=== PATIENT | female | born 1975 | race Caucasian/White ===

== ENCOUNTER 2020-03-11 07:34 | Day surgery (SDC) | payer OTHER, SELFPAY ==
--- NOTE | 2020-02-13 16:33 | PCM.HPOB.BLA ---
- Problem List (1) History of breast cancer Status: Acute (2) Ovary removal, prophylactic Status: Acute History and Physical Date of Admission: 03/11/20 DATE OF SERVICE: February 13, 2020 ? PROBLEM:?H/o breast cancer ? DIAGNOSIS:?H/o breast cancer ? PAST SURGICAL HISTORY:? PAST SURGICAL HISTORY PAST SURGICAL HISTORY Procedure Laterality Date ? INSERTION PLEURAL CATHETER ? 07/28/2019 ? PAST SURGICAL HISTORY OF ? 11/2010 ? Rt axillary node dissection Rt mastectomy ? PAST SURGICAL HISTORY OF ? 11/2010 ? right axillary node dissection ? PAST MEDICAL HISTORY:? PAST MEDICAL HISTORY PAST MEDICAL HISTORY Diagnosis Date ? Breast cancer (HCC) 11/2010 ? Right breast, completed radiation 03/09/11 ? SUBJECTIVE:? ? Pt reports her mother had trouble with anesthesia, but she cannot remember what the issue was. She says her mother reported she did not do well with the medication. She does not report a life threatening situation.? ? The patient herself has?never personally had any issues with anesthesia?or prior surgeries. ? Her oncology recommended BSO. She has recurrent metastatic breast cancer. ? She had Covid a few months ago.? ? SOCIAL HISTORY:? SOCIAL HISTORY Social History ? Tobacco Use ? Smoking status: Never Smoker ? Smokeless tobacco: Never Used Substance Use Topics ? Alcohol use: No ? Drug use: No ? Allergies: ?Keflex [Cephalexin] ?Rash ??Comment:Rash or hives ? Current Outpatient Medications on File Prior to Visit Medication Sig ? BIOTIN ORAL Take by mouth. ? zoledronic lmjn-kwfgynnn-qexak (ZOMETA) 4 mg/100 mL pgbk Inject intravenously. ? abemaciclib (VERZENIO) 150 mg tablet TAKE 1 TABLET (150MG) BY ?MOUTH TWICE DAILY ? letrozole (FEMARA) 2.5 mg tablet Take 1 tablet by mouth once daily. ? MULTIVITAMIN ORAL Take 1 tablet by mouth once daily. ? ? cholecalciferol, vitamin D3, (VITAMIN D3 ORAL) Take 1 tablet by mouth once daily. ? ? CALCIUM CITRATE ORAL Take 1 tablet by mouth twice daily. ? ? Ibuprofen 200 mg ORAL Cap Take 200 mg by mouth as needed. Take 400 mg. -600 mg. As needed. ? acetaminophen (TYLENOL EXTRA STRENGTH) 500 mg ORAL tablet Take 500 mg by mouth every 6 hours as needed. No current facility-administered medications on file prior to visit. ? OBJECTIVE: ? VITALS:? BP 80/50 ? Pulse 70 ? Resp 18 ? Ht 5' 6 (1.676 m) ? Wt 121 lb 9.6 oz (55.2 kg) ? LMP 08/26/2019 ? BMI 19.63 kg/m? ? HEENT: ?Normocephalic, atraumatic, Mucus membranes moist without lesions. ? NECK: ???Soft and Supple. ?No adenopathy , thyromegaly or bruits. ? SKIN: No lesions. ? CHEST: Clear to auscultation. ?No wheezes or rales. ?Good air exchange. ? HEART: Regular rate and rhythm ?No S3 or S4. ?No gallops or rubs. ? BACK: Nontender with no CVA tenderness. ? ABDOMEN: Soft, non-tender, non-distended, no masses, no hepatosplenomegaly. ? LOWER EXTREMITIES: There was no pitting edema, no palpable cords and no skin changes. ? ? ? ASSESSMENT:?H/o breast cancer, BSO recommended by oncologist ? PLAN:?Discussed laparoscopic BSO in detail.?The rationale for the proposed surgery was discussed in addition to risks, benefits, and alternatives. ?General pre- and post-operative care was reviewed. ?Questions were answered. ?After discussion, the patient indicated a desire to proceed with the planned surgery. ? Flor Lewis,?DO
[2020-03-10 11:32] LABS: Hematocrit 36.6 % (37-47); Mean Corp Hgb Conc 32.8 g/dL (32-36); Mean Corpuscular Hgb 34.5 pg (27.0-32.0); Mean Corpuscular Volume 105.2 fL (81-99); Mean Platelet Vol. 8.3 fl (6.2-12.0); Platelet Count 260 K/mm3 (150-450); RBC Distribution Width CV 12.8 % (11.6-14.6); RBC Distribution Width SD 49.1 fl (35.1-43.9); Red Blood Count 3.48 M/mm3 (4.2-5.4); White Blood Count 2.6 K/mm3 (4.4-11.0)
--- NOTE | 2020-03-11 | IMM_PTH ---
PATIENT: FARSHAD RAMOS [place] [facility] [place][id number] AGE/SX: 44/F ROOM: RE03/11/[address]: Dr. Flor Lewis DO : 1975 BED: DIS: 03/11/2020 SPEC #: [id number] RECD: 03/15/20 12:27 STATUS: ESTEFANY REQ #: [id number] MEGHAN: 03/11/20 00:[address]: Flor Lewis DEPT: IMMUNOHISTOCHEMISTRY RECD BY: Mary Jane Werner ENTERED: 03/15/20 12:30 SP TYPE: IMMUNO OTHR DR: Dr. Nitin Saenz MD Tissues: Uterus, NOS Procedures: RCC (add) NAPSIN A (add) CK20 (add) CK5-6 (add) CK7 (add) CK8 (add) E-CAD (add) HEP PAR (add) HER2 QUYEN (add) HI (add) TTF1 (add) Pankeratin (add) P40 (add) ER (initial) PHYSICIAN & [address] [address] SPECIMEN INFORMATION: Tissue Source: Bilateral fallopian tubes and ovaries Clinical Info: Breast cancer Specimen Number: [id number] #4 CPT code: 95609, 94253 x13 METHODOLOGY: Deparaffinized sections of prefer/formalin-fixed tissue or PAP/DQ stained slides are incubated with monoclonal/polyclonal antibodies/oligonucleotide probes. Localization is made via biotin free immunoperoxidase method. Appropriate controls are performed and reacted as expected. Results on target cell population are indicated in the following table: RESULTS: ANTIBODY / CLONE RESULT Block 4 E-Cad (ECH-6) positive AE1-3 (AE1/AE3/PCK26) positive CK7 (OV-TL12/30) positive CK8 (92mfhuJ14) positive CK20 (KS20.8) negative TTF-1 (8G7G3/1) negative Napsin A (Rabbit Polyclonal) negative HepPar (OCh1E5) negative RCC (PN-15) negative * CK5-6 (D5 & 1684) negative P40 (BC28) negative ER (clone 6F11) positive (>95%, strong staining) HI (clone 16/1E2) positive (~10%, weak staining) Her-2Neu (clone CB11) negative (1+) *?Aberrant luminal membranous staining is noted. These tests were developed and their performance characteristics determined by [facility]. They may not have been cleared or approved by the U.S. Food and Drug Administration. The FDA has determined that such clearance or approval is not necessary. The above immunohistochemical/dualISH markers are ordered and reviewed by the Pathologist. INTERPRETATION: Bilateral fallopian tubes and ovaries, salpingo-oophorectomy: Metastatic carcinoma consistent with breast primary. SJ:arline 03/16/2020 Case has been reviewed in consultation with Dr. Plata who concurs with the above diagnosis. IDC:AM
--- NOTE | 2020-03-11 | FALS_PTH ---
PATIENT: FARSHAD RAMOS [place] [facility] [place][id number] AGE/SX: 44/F ROOM: RE03/11/[address]: Dr. Flor Lewis DO : 1975 BED: DIS: 03/11/2020 SPEC #: [id number] RECD: 03/11/20 10:08 STATUS: ESTEFANY REEmerson #: [id number] MEGHAN: 03/11/20 00:[address]: Flor Lewis DEPT: SURGICAL PATHOLOGY RECD BY: Benjamin Curtis ENTERED: 03/11/20 10:08 SP TYPE: FALL TUBES OTHR DR: Dr. Nitin Saenz MD Tissues: Fallopian tube Procedures: Surgery Specimen Level IV HEADER OPERATION: Laparoscopic salpingo-oophorectomy PRE-OP DIAGNOSIS: History of breast cancer, BSO TISSUE SUBMITTED: Bilateral fallopian tubes and ovaries MICROSCOPIC DIAGNOSIS Bilateral fallopian tubes and ovaries, salpingo-oophorectomy: Bilateral ovaries - metastatic carcinoma consistent with breast primary. See comment. Bilateral fallopian tubes - no pathologic diagnosis. SJ:rg 03/16/2020 COMMENT The largest focus of metastatic carcinoma measures 1.2 cm in greatest dimension. Immunohistochemistry ([id number]) supports the above diagnosis. Clinical correlation and appropriate follow up are necessary. Please make reference to previous specimen ([id number]) right breast, mastectomy with diagnosis of invasive ductal carcinoma. The results are reported to Dr. Lewis's office on 03/16/2020. Case has been reviewed in consultation with Dr. Plata who concurs with the above diagnosis. IDC:AM MICROSCOPIC DESCRIPTION Slides are reviewed. GROSS DESCRIPTION Received in fixative is one container labeled with the patient's name and designated bilateral fallopian tubes and ovaries. The specimen consists of two fragments. These fragments consist of an ovary with adjacent fallopian tube. The ovaries are not designated as to right or left. One ovary measures 3 x 2.5 x 1 cm. Serial sections through the ovary does not reveal mass lesions. The adjacent fallopian tube measures 6 cm in length and 0.5 cm in average diameter. No tubo-ovarian adhesions are identified. Systems Development Manager sections from this ovary and fallopian tube are submitted in cassette 1. The other ovary is similar in appearance to the first ovary and measures 3 x 2 x 1 cm. Serial sections of the ovary reveal a firm, rubbery olivares nodule measuring 1.2 cm in greatest dimension. The adjacent fallopian tube measures 5 cm in length and 0.4 cm in average diameter. No tubo-ovarian adhesions are identified. Both fimbrial ends are grossly unremarkable. Systems Development Manager sections from the second ovary and fallopian tube are submitted in cassette 2. / AM:arline 03/11/20 The rest of the specimen is submitted in six more cassettes as follows: 3 & 4 - ovary with grossly identified nodule, 5 & 6 - rest of the other ovary, 7 & 8 - rest of the fallopian tube. / SJ:arline 03/12/20 TC:0 CPT: 24354 x2
[2020-03-11 08:05] VITALS: BP 105/83; PULSE 91; RESP 18; TEMP 36.8; O2SAT 100
[2020-03-11 08:28] LABS: Internal QC Validated? YES +Cl - CLEAR BKGD; Pregnancy, Urine Negative Negative
--- NOTE | 2020-03-11 08:28 | PCM.DC ---
- Discharge Diagnoses Current Active Problems: Current Active and Chronic Problems History of breast cancer (Acute) Ovary removal, prophylactic (Acute) You will use the following diet at home:: Regular Your food should be the consistency of: Regular Discharge Activity: May not drive while taking narcotic pain medications., May Shower May resume sexual activity in: 1 week Ice area for (Minutes): 15 Weight Bearing Status: Weight bearing as tolerated Lifting Restrictions: Nothing greater than 5-10 lbs for 1-2 weeks Call your doctor if your incision/area has: Sudden Increased Bleeding, Increased Pain/ Swelling, Increased Redness, Foul Smelling Discharge, Swelling at the incision site Call your doctor if you observe: Fever of 101 or Higher, Change in Color, Inability to urinate, Inability to have a bowel movement, Using more than one pad per hour, Shortness of breath, Dizziness, Fainting spells, Swelling in the ankles, Chest pain, Increased palpitations (irregular heartbeat), Calf discomfort, Uncontrolled pain Suture Line Care: Avoid Pulling/Pushing, Avoid Pinching/Bending Cleanse incision/area with: Soap & Water Allergies/Adverse Reactions: Allergies cephalexin [From Keflex] Allergy (Verified 03/04/20 12:10) Rash Medications to take at Discharge Abemaciclib [Verzenio] 150 mg PO BID 03/04/20 Acetaminophen [Tylenol Extra Strength] 500 - 1,000 mg PO Q6H PRN PRN 03/04/20 Biotin 1 mg PO DAILY 03/04/20 Calcium Acetate [Phoslyra] 5 ml PO DAILY 03/04/20 Cholecalciferol (VIT D3) [Vitamin D] 1,000 unit PO DAILY 03/04/20 Letrozole [Femara] 2.5 mg PO DAILY 03/04/20 Multivitamin [Daily Multiple Vitamin] 1 ea PO DAILY 03/04/20 [place]-3 Fatty Acids/Fish Oil [[place] 3 1,000 mg Softgel] 1 ea PO DAILY 03/04/20 Primary Care Physician: Nitin Saenz MD [Primary Care Provider] - Test Results: Test results from this visit will be discussed in further detail at your follow-up appointment, if applicable. Please Follow Up With: Flor Lewis DO When: 1 week
[2020-03-11] MEDS: Lactated Ringers 1,000 ML 100 ML IV (08:29)
[2020-03-11] MEDS: Bupivacaine Mpf 0.5% 30 ML VIAL (08:53)
--- NOTE | 2020-03-11 09:28 | PCM.OPRPT ---
Problem List (1) History of breast cancer Status: Acute (2) Ovary removal, prophylactic Status: Acute Report of Operation Date of Procedure: 03/11/20 Pre-Operative Diagnosis: History of breast cancer Post-Operative Diagnosis: As above Surgery/Procedure Performed:: Laparoscopic bilateral salpingoophorectomy Description of Surgical Findings:: Normal appearing pelvis. Normal-appearing uterus. Normal-appearing bilateral tubes and ovaries. medical claims analyst: Mary Alice Abarca Type of Anesthesia:: General Anesthesiologist: Hernandez Pereira Special Medications: None Specimen's removed: Bilateral tubes and ovaries Drains: Rea Estimated Blood Loss (mL): < 50 cc Fluids Replaced: 1200 Description of Procedure: Marshmallow Machine Worker was present for the entire case and assisted with prepping and draping the patient, assisted with performing the BSO, and assisted with closure of the port sites. Start time: 852 Stop time: 927 Procedure: The patient was taken to the operating room where general anesthesia was induced. She was prepped and draped in dorsal lithotomy position using yellowfin stirrups. From below a weighted speculum was placed in the vagina to expose the cervix. A single-tooth tenaculum was placed on the anterior lip of the cervix. A Ed cannula was placed. A Rea catheter was placed. Gloves were then changed and attention was turned to the abdominal portion of the procedure. Local was infiltrated at all port sites. Infraumbilically an incision was made to accommodate a 5 mm port. The port was placed under direct visualization with the laparoscope. Once confirmed intraperitonea, CO2 insufflation was initiated. The omentum and bowel were inspected with no injury noted upon entry. A 5 mm left lateral port was placed. A 5 mm right lateral port was placed. The pelvis was inspected and noted to be normal-appearing. Pictures were taken for the patient. The right ureter was identified. The right ovary and fallopian tube were elevated out of the pelvis. The infundibulopelvic ligament was cauterized and transected with good visualization of the ureter using the Ligasure device. The utero-ovarian ligament was cauterized and transected. The right ovary and tube were removed using the Ligasure device and placed into the cul-de-sac. Next the left ureter was easily identified. The left ovary and tube were elevated out of the pelvis. The infundibulopelvic ligament was cauterized and transected with good visualization of the ureter. The utero-ovarian ligament was then cauterized and transected. The left ovary and fallopian tube were removed using the Ligasure device. A 5 mm endocatch bag was placed into the left lateral port. The bilateral tubes and ovaries were placed into the 5 mm bag. The bilateral ovaries and tubes within the bag were removed from the pelvis. The bilateral ovaries and tubes were sent to pathology for review. Hemostasis was noted. All ports were removed and the abdomen was exsufflated. The incision sites were closed with Monocryl and glue. From below all instruments were removed and a vaginal sweep was performed. The Rea catheter was removed. All instrument, sponge, needle counts were correct. The patient was taken to the recovery in stable condition. Grafts/Implants Used: None - Complications None - Admit VTE Documentation VTE Present on Admission: No VTE Mechan Device Prophylaxis: SCD's VTE Pharm Prophylaxis ordered?: No
[2020-03-11 09:39] VITALS: BP 105/83; BP 125/84; PULSE 85; RESP 16; TEMP 36.3; O2SAT 100
[2020-03-11 09:45] VITALS: BP 105/83; BP 109/74; PULSE 76; RESP 16; O2SAT 100
[2020-03-11 10:00] VITALS: BP 105/83; BP 98/62; PULSE 62; RESP 16; O2SAT 100
[2020-03-11 10:16] VITALS: BP 105/83; BP 95/64; PULSE 61; RESP 16; TEMP 36.1; O2SAT 99
[2020-03-11 11:17] VITALS: BP 105/83; BP 94/56; PULSE 58; RESP 18; TEMP 36.2; O2SAT 100
== END 2020-03-11 11:37 | disposition home or self-care (01) ==
LOC: SDC 07:40 → AC 07:41
PROVIDERS: PCP Family Medicine; Referring Provider Obstetrics & Gynecology; Visit Provider Obstetrics & Gynecology
PROC: (CPT 58661; principal; 2020-03-11 08:45)
DX: Z40.02 Encounter for prophylactic removal of ovary(s) (principal); C50.919 Malignant neoplasm of unspecified site of unspecified female breast; Z92.3 Personal history of irradiation; Z79.899 Other long term (current) drug therapy
CPT/HCPCS: 58661; 36415; 81025; 85027; 86850; 86900; 86901; 87426; 88302; 88305; 88341; 88342; C9803; J7120; J2405